=== PATIENT | female | born 1940 | race Caucasian/White ===

== ENCOUNTER 2022-04-01 08:52 | Inpatient (IN) | payer OTHER, MEDICAID ==
[2022-04-01] VITALS (8 sets, daily range): BP systolic 76–134
[~2022-04-01] VITALS: Ht 152.4 cm; Wt 76.7 kg
[2022-04-01] MEDS ORDERED: cefTRIAXone 1 GM IVPB PREMIX 50 ML IV ONE (09:00)
[2022-04-01] MEDS ORDERED: NS 1000 ML IV.SOLN IV ONE (09:00)
[2022-04-01] MEDS ORDERED: ACET325T PO (09:20)
[2022-04-01] MEDS ORDERED: MULT-1193 PO (09:20)
[2022-04-01] MEDS ORDERED: VITD2000 PO (09:20)
[2022-04-01] MEDS ORDERED: DOCU-144 PO (09:20)
[2022-04-01] MEDS ORDERED: TAMS-11 PO (09:20)
[2022-04-01] MEDS ORDERED: SUCR1TAB2 PO (09:20)
[2022-04-01] MEDS ORDERED: CARB15DR OP (09:20)
[2022-04-01] MEDS ORDERED: OMEG-158 PO (09:20)
[2022-04-01] MEDS ORDERED: CARV6.2554 PO (09:20)
[2022-04-01] MEDS ORDERED: GLUC1KIT IJ (09:20)
[2022-04-01] MEDS ORDERED: METF-379 PO (09:20)
[2022-04-01] MEDS ORDERED: AMIN30LI2 PO (09:20)
[2022-04-01] MEDS ORDERED: INSU100V11 SQ ×2 (09:20)
[2022-04-01] MEDS ORDERED: SSNOVOLOG SUBCUT (09:20)
[2022-04-01] MEDS ORDERED: CRAN450T9 PO (09:20)
[2022-04-01] MEDS ORDERED: RIVA10TA PO (09:20)
[2022-04-01] MEDS ORDERED: SYN50 PO (09:20)
[2022-04-01 09:44] LABS: BASOPHILS # (AUTO) 0.1 K/uL (0.0-0.2); BASOPHILS % (AUTO) 0.4 % (0.0-2.0); EOSINOPHILS % (AUTO) 0.2 % (0.0-4.0); HEMATOCRIT 42.2 % (36-48); HEMOGLOBIN 14.4 g/dL (12.0-16.0); LYMPHOCYTES # (AUTO) 3.2 K/uL (1.0-5.5); LYMPHOCYTES % (AUTO) 18.1 % (20.5-51.5); MEAN CORPUSCULAR HEMOGLOBIN 32 pg (27-31); MEAN CORPUSCULAR HGB CONC 34 % (32-36); MEAN CORPUSCULAR VOLUME 93 fL (79.0-98.0); MONOCYTES # (AUTO) 1.9 K/uL (0.0-1.0); MONOCYTES % (AUTO) 10.5 % (1.7-9.3); NEUTROPHILS # (AUTO) 12.5 K/uL (1.8-7.7); NEUTROPHILS % (AUTO) 70.8 % (40.0-70.0); PLATELET COUNT (AUTO) 264 K/uL (130-430); RED BLOOD CELL COUNT(AUTO) 4.54 MIL/uL (4.2-6.2); RED CELL DISTRIBUTION WIDTH 15.2 % (9.0-15.0); WHITE BLOOD COUNT (AUTO) 17.7 K/uL (4.8-10.8)
[2022-04-01 10:04] LABS: ANION GAP 10 (5-15); CALCIUM 8.9 mg/dL (8.4-11.0); CHLORIDE 105 mmol/L (98-107); CREATININE 0.66 mg/dL (0.55-1.30); GLUCOSE 143 mg/dL (70-99); UREA NITROGEN, BLOOD 21 mg/dL (8-21)
[2022-04-01 10:13] LABS: ALBUMIN 2.5 g/dL (3.4-4.8); ASPARTATE AMINOTRANSFERASE 15 U/L (10-37); TOTAL BILIRUBIN 0.7 mg/dL (0.0-1.0)
[2022-04-01 10:29] LABS: ALANINE AMINOTRANSFERASE 9 U/L (12-78)
[2022-04-01 12:11] LABS: BILIRUBIN,URINE NEGATIVE (NEGATIVE); BLOOD, URINE 3+ (NEGATIVE); CLARITY/URINE CLOUDY (CLEAR); COLOR,URINE YELLOW (YELLOW); GLUCOSE,URINE NEGATIVE (NEGATIVE); KETONES,URINE TRACE (NEGATIVE); LEUKOCYTE ESTERASE ,URINE 3+ (NEGATIVE); NITRITE, URINE NEGATIVE (NEGATIVE); PROTEIN URINE 2+ (NEGATIVE); UROBILINOGEN,URINE 0.2 (0.2-1.0)
[2022-04-01 12:30] LABS: BACTERIA,URINE FEW /HPF (None Seen); RBC,URINE 20-50 /HPF (0-3); WBC,URINE >100 /HPF (0-3)
[2022-04-01] MEDS ORDERED: ACETAMINOPHEN 500 MG TABLET PO ONE (12:45)
[2022-04-01] MEDS ORDERED: NACL 0.9% 1,000 ML IV ONE (13:30)
[2022-04-01] MEDS ORDERED: cefTRIAXone 1 GM in D5W 50 ML IV SCH (15:45)
[2022-04-01] MEDS ORDERED: NACL 0.9% 1,000 ML IV SCH (15:45)
[2022-04-01] MEDS ORDERED: AZITHROMYCIN 500 MG in NS 250 ML IV SCH (15:45)
[2022-04-01] MEDS ORDERED: dilTIAZem HCL IVP 5 MG/ML VIAL IVP ONE ×2 (15:50→16:00)
[2022-04-01] MEDS ORDERED: dilTIAZem HCL IVP 5 MG/ML VIAL ONE (15:56)
[2022-04-01] MEDS ORDERED: DILTIAZEM HCL 60 MG TABLET ONE (15:57)
[2022-04-01] MEDS ORDERED: DILTIAZEM HCL 60 MG TABLET PO ONE (16:00)
[2022-04-01] MEDS ORDERED: METOPROLOL TARTRATE 5 MG/5 ML VIAL IVP ONE (16:45)
[2022-04-01] MEDS ORDERED: *HEPARIN PER PHARMACY XX ONE (17:00)
[2022-04-01] MEDS ORDERED: HEPARIN SODIUM,PORCINE 2000 UNITS/0.4 ML BOLUS IVP PRN (17:15)
[2022-04-01] MEDS ORDERED: HEPARIN SODIUM,PORCINE 3000 UNITS/0.6 ML BOLUS IVP PRN (17:15)
[2022-04-01] MEDS ORDERED: HEPARIN SODIUM,PORCINE 5,000 UNITS/ML VIAL IVP ONE (17:30)
[2022-04-01] MEDS: AMIODARONE HCL 450 MG in D5W 241 ML IV SCH (18:08)
[2022-04-01] MEDS: LevALBUTEROL HCL 1.25 MG/0.5 ML *CONC.* VIAL.NEB (XOPENEX CONC.) INH SCH (19:35)
[2022-04-01] MEDS: AZITHROMYCIN 500 MG in NS 250 ML IV SCH (20:55)
[2022-04-01] MEDS: DOCUSATE SODIUM 100 MG CAPSULE PO SCH (21:00)
[2022-04-01] MEDS: CARVEDILOL 6.25 MG TABLET (COREG) PO SCH (21:00)
[2022-04-01] MEDS: OMEGA-3/DHA/EPA/FISH OIL 1 GM CAPSULE PO SCH (21:00)
[2022-04-01] MEDS: PEG 400/HYPROMELLOSE/GLYCERIN 15 ML DROPS OP SCH (21:00)
[2022-04-01] MEDS: HEPARIN 25,000 UNITS in 250 ML PREMIX IV PRN (21:06)
[2022-04-01] MEDS: SUCRALFATE 1 GM TABLET PO SCH ×2 (21:17→21:18)
[2022-04-01] MEDS: INSULIN GLARGINE 100 UNITS/ML, 10 ML VIAL SUBCUT SCH (22:05)
[2022-04-01] MEDS ORDERED: NOREPINEPHRINE 4 MG/4 ML VIAL IV ONE (22:13)
[2022-04-02] VITALS (24 sets, daily range): BP systolic 85–165
[2022-04-02] MEDS ORDERED: AMIODARONE HCL 450 MG/9 ML VIAL IV ONE (00:30)
[2022-04-02] MEDS: NOREPINEPHRINE BITARTRATE 4 MG in D5W 246 ML IV PRN ×2 (00:42→06:31)
[2022-04-02] MEDS: AMIODARONE HCL 450 MG in D5W 241 ML IV SCH (00:53)
[2022-04-02] MEDS: LevALBUTEROL HCL 1.25 MG/0.5 ML *CONC.* VIAL.NEB (XOPENEX CONC.) INH SCH ×4 (00:55→19:59)
[2022-04-02 03:29] LABS: BASOPHILS # (AUTO) 0.1 K/uL (0.0-0.2); BASOPHILS % (AUTO) 0.8 % (0.0-2.0); EOSINOPHILS % (AUTO) 0.1 % (0.0-4.0); HEMATOCRIT 39.3 % (36-48); HEMOGLOBIN 12.8 g/dL (12.0-16.0); LYMPHOCYTES # (AUTO) 3.9 K/uL (1.0-5.5); LYMPHOCYTES % (AUTO) 21.7 % (20.5-51.5); MEAN CORPUSCULAR HEMOGLOBIN 30 pg (27-31); MEAN CORPUSCULAR HGB CONC 33 % (32-36); MEAN CORPUSCULAR VOLUME 91 fL (79.0-98.0); MONOCYTES # (AUTO) 1.9 K/uL (0.0-1.0); MONOCYTES % (AUTO) 10.5 % (1.7-9.3); NEUTROPHILS # (AUTO) 12.1 K/uL (1.8-7.7); NEUTROPHILS % (AUTO) 66.9 % (40.0-70.0); PLATELET COUNT (AUTO) 287 K/uL (130-430); RED CELL DISTRIBUTION WIDTH 15.3 % (9.0-15.0)
[2022-04-02 04:03] LABS: ANION GAP 14 (5-15); CALCIUM 7.8 mg/dL (8.4-11.0); CHLORIDE 106 mmol/L (98-107); CREATININE 0.74 mg/dL (0.55-1.30); GLUCOSE 302 mg/dL (70-99); UREA NITROGEN, BLOOD 30 mg/dL (8-21)
[2022-04-02 04:23] LABS: INR 1.1 (0.8-1.2); PROTHROMBIN TIME 11.5 SECS (9.5-12.5)
[2022-04-02] MEDS: HEPARIN 25,000 UNITS in 250 ML PREMIX IV PRN ×2 (05:13→13:54)
[2022-04-02] MEDS ORDERED: NOREPINEPHRINE 4 MG/4 ML VIAL IV ONE (06:09)
[2022-04-02] MEDS: INSULIN LISPRO SLIDING SCALE 100 UNITS/ML, 3 ML VIAL (humaLOG) SUBCUT PRN (06:28)
[2022-04-02] MEDS: LEVOTHYROXINE SODIUM 0.05 MG TABLET PO SCH (06:34)
[2022-04-02] MEDS: CARVEDILOL 6.25 MG TABLET (COREG) PO SCH ×2 (09:00→21:19)
[2022-04-02] MEDS: DOCUSATE SODIUM 100 MG CAPSULE PO SCH ×2 (09:00→21:19)
[2022-04-02] MEDS: ACETAMINOPHEN 325 MG TABLET PO SCH (09:00)
[2022-04-02] MEDS: CHOLECALCIFEROL (VITAMIN D3) 2,000 UNIT TABLET PO SCH (09:00)
[2022-04-02] MEDS ORDERED: RIVAROXABAN 10 MG TABLET PO SCH (09:00)
[2022-04-02] MEDS ORDERED: NON-FORMULARY MEDICATION (Amino Acids/Protein Hydrolys (Pro-Stat Liquid) 30 ML) PO SCH (09:00)
[2022-04-02] MEDS: SUCRALFATE 1 GM TABLET PO SCH ×4 (09:00→21:18)
[2022-04-02] MEDS: PEG 400/HYPROMELLOSE/GLYCERIN 15 ML DROPS OP SCH ×2 (09:00→21:21)
[2022-04-02] MEDS: MULTIVITS,CA,MINERALS/IRON/FA 1 TABLET PO SCH (09:00)
[2022-04-02] MEDS ORDERED: cefTRIAXone 1 GM in D5W 50 ML IV SCH (10:00)
[2022-04-02 12:02] LABS: ERYTHROCYTE SEDIMENTATION RATE 79 MM/HR (0-20)
[2022-04-02] MEDS: SODIUM BICARBONATE 8.4% JECT 50 MEQ in 0.45% NACL 1,000 ML IV SCH (13:39)
[2022-04-02] MEDS ORDERED: DIGOXIN 0.5 MG/2 ML AMP IVP ONE (14:30)
[2022-04-02] MEDS: OMEGA-3/DHA/EPA/FISH OIL 1 GM CAPSULE PO SCH (21:19)
[2022-04-02] MEDS: CEFEPIME 2 GM in D5W 100 ML IV SCH (21:20)
[2022-04-02] MEDS: metroNIDAZOLE 500 mg/NS 100 ML IV SCH (21:20)
[2022-04-02 21:23] LABS: PROTHROMBIN TIME 10.5 SECS (9.5-12.5)
[2022-04-02] MEDS: INSULIN GLARGINE 100 UNITS/ML, 10 ML VIAL SUBCUT SCH (21:29)
[2022-04-03] VITALS (24 sets, daily range): BP systolic 98–146
[2022-04-03] MEDS: LevALBUTEROL HCL 1.25 MG/0.5 ML *CONC.* VIAL.NEB (XOPENEX CONC.) INH SCH ×4 (00:12→19:40)
[2022-04-03] MEDS: SODIUM BICARBONATE 8.4% JECT 50 MEQ in 0.45% NACL 1,000 ML IV SCH ×2 (03:29→19:06)
[2022-04-03] MEDS: LEVOTHYROXINE SODIUM 0.05 MG TABLET PO SCH (06:20)
[2022-04-03 06:35] LABS: BASOPHILS # (AUTO) 0.1 K/uL (0.0-0.2); BASOPHILS % (AUTO) 0.6 % (0.0-2.0); EOSINOPHILS # (AUTO) 0.1 K/uL (0.0-0.4); EOSINOPHILS % (AUTO) 1.4 % (0.0-4.0); HEMATOCRIT 35.9 % (36-48); HEMOGLOBIN 12.4 g/dL (12.0-16.0); LYMPHOCYTES # (AUTO) 2.5 K/uL (1.0-5.5); MEAN CORPUSCULAR HEMOGLOBIN 32 pg (27-31); MEAN CORPUSCULAR HGB CONC 35 % (32-36); MEAN CORPUSCULAR VOLUME 91 fL (79.0-98.0); MONOCYTES # (AUTO) 1.1 K/uL (0.0-1.0); MONOCYTES % (AUTO) 10.6 % (1.7-9.3); NEUTROPHILS # (AUTO) 6.2 K/uL (1.8-7.7); NEUTROPHILS % (AUTO) 62.4 % (40.0-70.0); PLATELET COUNT (AUTO) 241 K/uL (130-430); RED BLOOD CELL COUNT(AUTO) 3.93 MIL/uL (4.2-6.2); RED CELL DISTRIBUTION WIDTH 14.9 % (9.0-15.0)
[2022-04-03] MEDS: AZITHROMYCIN 500 MG in NS 250 ML IV SCH ×2 (07:58→19:06)
[2022-04-03] MEDS: MULTIVITS,CA,MINERALS/IRON/FA 1 TABLET PO SCH (08:47)
[2022-04-03] MEDS: ACETAMINOPHEN 325 MG TABLET PO SCH (08:47)
[2022-04-03] MEDS: CARVEDILOL 6.25 MG TABLET (COREG) PO SCH (08:48)
[2022-04-03] MEDS: CHOLECALCIFEROL (VITAMIN D3) 2,000 UNIT TABLET PO SCH (08:48)
[2022-04-03] MEDS: DOCUSATE SODIUM 100 MG CAPSULE PO SCH ×2 (08:49→20:21)
[2022-04-03] MEDS: SUCRALFATE 1 GM TABLET PO SCH ×4 (08:49→20:21)
[2022-04-03] MEDS: CEFEPIME 2 GM in D5W 100 ML IV SCH ×2 (08:50→20:21)
[2022-04-03] MEDS: PEG 400/HYPROMELLOSE/GLYCERIN 15 ML DROPS OP SCH ×2 (08:50→21:13)
[2022-04-03 08:53] LABS: ANION GAP 8 (5-15); CALCIUM 7.7 mg/dL (8.4-11.0); CHLORIDE 106 mmol/L (98-107); GLUCOSE 128 mg/dL (70-99); UREA NITROGEN, BLOOD 21 mg/dL (8-21)
[2022-04-03] MEDS: metroNIDAZOLE 500 mg/NS 100 ML IV SCH ×2 (09:50→21:13)
[2022-04-03] MEDS ORDERED: FUROSEMIDE 20 MG/2 ML VIAL IVP ONE (12:00)
[2022-04-03] MEDS: ACETYLCYSTEINE 20% 4 ML VIAL (RT) INH SCH ×2 (12:09→19:41)
[2022-04-03] MEDS: HEPARIN 25,000 UNITS in 250 ML PREMIX IV PRN (12:31)
[2022-04-03] MEDS ORDERED: BALSAM PERU/CASTOR OIL 56.7 GM OINT...G. TP ONE (15:45)
[2022-04-03] MEDS: OMEGA-3/DHA/EPA/FISH OIL 1 GM CAPSULE PO SCH (20:21)
[2022-04-03] MEDS: INSULIN GLARGINE 100 UNITS/ML, 10 ML VIAL SUBCUT SCH (21:18)
[2022-04-04] VITALS (24 sets, daily range): BP systolic 85–139
[2022-04-04] MEDS: ACETYLCYSTEINE 20% 4 ML VIAL (RT) INH SCH ×4 (01:10→20:53)
[2022-04-04] MEDS: LevALBUTEROL HCL 1.25 MG/0.5 ML *CONC.* VIAL.NEB (XOPENEX CONC.) INH SCH ×4 (01:10→20:40)
[2022-04-04] MEDS: LEVOTHYROXINE SODIUM 0.05 MG TABLET PO SCH (06:53)
[2022-04-04 06:57] LABS: ANION GAP 4 (5-15); CHLORIDE 103 mmol/L (98-107); CREATININE 0.45 mg/dL (0.55-1.30); GLUCOSE 112 mg/dL (70-99); UREA NITROGEN, BLOOD 18 mg/dL (8-21)
[2022-04-04 07:03] LABS: CALCIUM 6.9 mg/dL (8.4-11.0)
[2022-04-04 09:29] LABS: BASOPHILS % (AUTO) 0.3 % (0.0-2.0); EOSINOPHILS # (AUTO) 0.4 K/uL (0.0-0.4); EOSINOPHILS % (AUTO) 3.9 % (0.0-4.0); HEMATOCRIT 35.6 % (36-48); HEMOGLOBIN 12.3 g/dL (12.0-16.0); LYMPHOCYTES # (AUTO) 3.4 K/uL (1.0-5.5); MEAN CORPUSCULAR HEMOGLOBIN 31 pg (27-31); MEAN CORPUSCULAR HGB CONC 35 % (32-36); MEAN CORPUSCULAR VOLUME 89 fL (79.0-98.0); MONOCYTES # (AUTO) 0.7 K/uL (0.0-1.0); MONOCYTES % (AUTO) 7.7 % (1.7-9.3); NEUTROPHILS # (AUTO) 5.2 K/uL (1.8-7.7); NEUTROPHILS % (AUTO) 53.1 % (40.0-70.0); PLATELET COUNT (AUTO) 247 K/uL (130-430); RED BLOOD CELL COUNT(AUTO) 4.01 MIL/uL (4.2-6.2); RED CELL DISTRIBUTION WIDTH 14.9 % (9.0-15.0); WHITE BLOOD COUNT (AUTO) 9.7 K/uL (4.8-10.8)
[2022-04-04] MEDS: CEFEPIME 2 GM in D5W 100 ML IV SCH ×2 (12:03→21:26)
[2022-04-04] MEDS: metroNIDAZOLE 500 mg/NS 100 ML IV SCH ×2 (12:03→20:58)
[2022-04-04] MEDS: MULTIVITS,CA,MINERALS/IRON/FA 1 TABLET PO SCH (12:04)
[2022-04-04] MEDS: ACETAMINOPHEN 325 MG TABLET PO SCH (12:05)
[2022-04-04] MEDS: DOCUSATE SODIUM 100 MG CAPSULE PO SCH ×2 (12:06→21:31)
[2022-04-04] MEDS: SUCRALFATE 1 GM TABLET PO SCH ×4 (12:06→21:28)
[2022-04-04] MEDS: PEG 400/HYPROMELLOSE/GLYCERIN 15 ML DROPS OP SCH ×2 (12:07→21:27)
[2022-04-04] MEDS: CHOLECALCIFEROL (VITAMIN D3) 2,000 UNIT TABLET PO SCH (12:09)
[2022-04-04] MEDS: BALSAM PERU/CASTOR OIL 56.7 GM OINT...G. TP SCH (12:10)
[2022-04-04] MEDS: SODIUM BICARBONATE 8.4% JECT 50 MEQ in 0.45% NACL 1,000 ML IV SCH (12:12)
[2022-04-04] MEDS ORDERED: DIGOXIN 0.5 MG/2 ML AMP IVP ONE (13:45)
[2022-04-04] MEDS ORDERED: POTASSIUM CHLORIDE 20 MEQ TAB.PRT.SR PO ONE (13:45)
[2022-04-04] MEDS: NACL 0.9% 1,000 ML IV SCH (17:13)
[2022-04-04] MEDS: AZITHROMYCIN 500 MG in NS 250 ML IV SCH (17:14)
[2022-04-04] MEDS: OMEGA-3/DHA/EPA/FISH OIL 1 GM CAPSULE PO SCH (21:32)
[2022-04-04] MEDS: INSULIN GLARGINE 100 UNITS/ML, 10 ML VIAL SUBCUT SCH (22:00)
[2022-04-04] MEDS: INSULIN LISPRO SLIDING SCALE 100 UNITS/ML, 3 ML VIAL (humaLOG) SUBCUT PRN (22:15)
[2022-04-04] MEDS ORDERED: NOREPINEPHRINE 4 MG/4 ML VIAL IV ONE (22:26)
[2022-04-04] MEDS: NOREPINEPHRINE BITARTRATE 4 MG in D5W 246 ML IV PRN (22:31)
[2022-04-05] VITALS (19 sets, daily range): BP systolic 98–168
[2022-04-05] MEDS: LevALBUTEROL HCL 1.25 MG/0.5 ML *CONC.* VIAL.NEB (XOPENEX CONC.) INH SCH ×4 (01:38→19:24)
[2022-04-05] MEDS: ACETYLCYSTEINE 20% 4 ML VIAL (RT) INH SCH ×4 (01:50→19:25)
[2022-04-05] MEDS: LEVOTHYROXINE SODIUM 0.05 MG TABLET PO SCH (06:21)
[2022-04-05 07:25] LABS: ANION GAP 9 (5-15); CALCIUM 8.3 mg/dL (8.4-11.0); CHLORIDE 107 mmol/L (98-107); CREATININE 0.68 mg/dL (0.55-1.30); GLUCOSE 206 mg/dL (70-99); UREA NITROGEN, BLOOD 19 mg/dL (8-21)
[2022-04-05] MEDS: metroNIDAZOLE 500 mg/NS 100 ML IV SCH ×2 (08:31→20:51)
[2022-04-05] MEDS: CEFEPIME 2 GM in D5W 100 ML IV SCH ×2 (08:31→22:21)
[2022-04-05] MEDS: BALSAM PERU/CASTOR OIL 56.7 GM OINT...G. TP SCH (08:32)
[2022-04-05] MEDS: MULTIVITS,CA,MINERALS/IRON/FA 1 TABLET PO SCH (08:32)
[2022-04-05] MEDS: SUCRALFATE 1 GM TABLET PO SCH ×4 (08:33→20:54)
[2022-04-05] MEDS: ACETAMINOPHEN 325 MG TABLET PO SCH (08:33)
[2022-04-05] MEDS: CHOLECALCIFEROL (VITAMIN D3) 2,000 UNIT TABLET PO SCH (08:33)
[2022-04-05] MEDS: DOCUSATE SODIUM 100 MG CAPSULE PO SCH ×2 (08:33→20:54)
[2022-04-05] MEDS: PEG 400/HYPROMELLOSE/GLYCERIN 15 ML DROPS OP SCH ×2 (08:34→21:55)
[2022-04-05 09:47] LABS: HEMATOCRIT 36.9 % (36-48); HEMOGLOBIN 12.4 g/dL (12.0-16.0); MEAN CORPUSCULAR HEMOGLOBIN 30 pg (27-31); MEAN CORPUSCULAR HGB CONC 34 % (32-36); MEAN CORPUSCULAR VOLUME 90 fL (79.0-98.0); PLATELET COUNT (AUTO) 257 K/uL (130-430); RED CELL DISTRIBUTION WIDTH 15.5 % (9.0-15.0); WHITE BLOOD COUNT (AUTO) 10.9 K/uL (4.8-10.8)
[2022-04-05 09:53] LABS: EOSINOPHILS % (AUTO) 3.2 % (0.0-4.0); LYMPHOCYTES % (AUTO) 31.9 % (20.5-51.5); MONOCYTES % (AUTO) 10.3 % (1.7-9.3); NEUTROPHILS % (AUTO) 53.7 % (40.0-70.0)
[2022-04-05 09:54] LABS: BASOPHILS # (AUTO) 0.1 K/uL (0.0-0.2); BASOPHILS % (AUTO) 0.9 % (0.0-2.0); EOSINOPHILS # (AUTO) 0.3 K/uL (0.0-0.4); LYMPHOCYTES # (AUTO) 2.7 K/uL (1.0-5.5); MONOCYTES # (AUTO) 0.9 K/uL (0.0-1.0); NEUTROPHILS # (AUTO) 4.6 K/uL (1.8-7.7)
[2022-04-05] MEDS: HEPARIN 25,000 UNITS in 250 ML PREMIX IV PRN (10:34)
[2022-04-05] MEDS: NACL 0.9% 1,000 ML IV SCH ×2 (12:06→20:51)
[2022-04-05] MEDS: INSULIN LISPRO SLIDING SCALE 100 UNITS/ML, 3 ML VIAL (humaLOG) SUBCUT PRN ×2 (12:07→17:55)
[2022-04-05] MEDS ORDERED: DIGOXIN 0.5 MG/2 ML AMP IVP ONE (14:00)
[2022-04-05] MEDS: OMEGA-3/DHA/EPA/FISH OIL 1 GM CAPSULE PO SCH (20:54)
[2022-04-05] MEDS: APIXABAN 2.5 MG TABLET PO SCH (20:56)
[2022-04-05] MEDS: INSULIN GLARGINE 100 UNITS/ML, 10 ML VIAL SUBCUT SCH (21:26)
[2022-04-06] MEDS: ACETYLCYSTEINE 20% 4 ML VIAL (RT) INH SCH ×4 (01:00→19:48)
[2022-04-06] MEDS: LevALBUTEROL HCL 1.25 MG/0.5 ML *CONC.* VIAL.NEB (XOPENEX CONC.) INH SCH ×4 (03:20→19:48)
[2022-04-06 05:11] VITALS: BP_SYST 105
[2022-04-06] MEDS: INSULIN LISPRO SLIDING SCALE 100 UNITS/ML, 3 ML VIAL (humaLOG) SUBCUT PRN ×4 (07:53→22:27)
[2022-04-06] MEDS: LEVOTHYROXINE SODIUM 0.05 MG TABLET PO SCH (07:58)
[2022-04-06] MEDS: metroNIDAZOLE 500 mg/NS 100 ML IV SCH ×2 (09:02→22:36)
[2022-04-06] MEDS: ACETAMINOPHEN 325 MG TABLET PO SCH ×2 (09:04→10:04)
[2022-04-06] MEDS: CEFEPIME 2 GM in D5W 100 ML IV SCH ×2 (09:04→21:20)
[2022-04-06] MEDS: CHOLECALCIFEROL (VITAMIN D3) 2,000 UNIT TABLET PO SCH (09:04)
[2022-04-06] MEDS: MULTIVITS,CA,MINERALS/IRON/FA 1 TABLET PO SCH (09:05)
[2022-04-06] MEDS: SUCRALFATE 1 GM TABLET PO SCH ×4 (09:05→21:16)
[2022-04-06] MEDS: DOCUSATE SODIUM 100 MG CAPSULE PO SCH ×2 (09:05→21:16)
[2022-04-06] MEDS: PEG 400/HYPROMELLOSE/GLYCERIN 15 ML DROPS OP SCH ×2 (09:07→21:19)
[2022-04-06] MEDS: BALSAM PERU/CASTOR OIL 56.7 GM OINT...G. TP SCH (09:08)
[2022-04-06] MEDS: APIXABAN 2.5 MG TABLET PO SCH ×2 (09:09→21:17)
[2022-04-06 11:32] VITALS: BP_SYST 103
[2022-04-06 15:29] VITALS: BP_SYST 102
[2022-04-06] MEDS: OMEGA-3/DHA/EPA/FISH OIL 1 GM CAPSULE PO SCH (21:15)
[2022-04-06] MEDS: INSULIN GLARGINE 100 UNITS/ML, 10 ML VIAL SUBCUT SCH (22:28)
[2022-04-06 23:39] VITALS: BP_SYST 144
[2022-04-07 00:04] VITALS: BP_SYST 144
[2022-04-07] MEDS: ACETYLCYSTEINE 20% 4 ML VIAL (RT) INH SCH ×5 (01:38→23:21)
[2022-04-07] MEDS: LevALBUTEROL HCL 1.25 MG/0.5 ML *CONC.* VIAL.NEB (XOPENEX CONC.) INH SCH ×2 (01:38→07:06)
[2022-04-07] MEDS: NACL 0.9% 1,000 ML IV SCH (04:45)
[2022-04-07] MEDS: LEVOTHYROXINE SODIUM 0.05 MG TABLET PO SCH (07:16)
[2022-04-07] MEDS: INSULIN LISPRO SLIDING SCALE 100 UNITS/ML, 3 ML VIAL (humaLOG) SUBCUT PRN ×4 (07:18→20:53)
[2022-04-07 08:29] LABS: ANION GAP 7 (5-15); CALCIUM 8.8 mg/dL (8.4-11.0); CHLORIDE 108 mmol/L (98-107); GLUCOSE 326 mg/dL (70-99); UREA NITROGEN, BLOOD 27 mg/dL (8-21)
[2022-04-07] MEDS: metroNIDAZOLE 500 mg/NS 100 ML IV SCH ×2 (09:29→21:00)
[2022-04-07] MEDS: MULTIVITS,CA,MINERALS/IRON/FA 1 TABLET PO SCH (09:30)
[2022-04-07] MEDS: CHOLECALCIFEROL (VITAMIN D3) 2,000 UNIT TABLET PO SCH (09:30)
[2022-04-07] MEDS: SUCRALFATE 1 GM TABLET PO SCH ×4 (09:30→21:47)
[2022-04-07] MEDS: DOCUSATE SODIUM 100 MG CAPSULE PO SCH ×2 (09:30→21:47)
[2022-04-07] MEDS: CEFEPIME 2 GM in D5W 100 ML IV SCH ×2 (09:34→21:46)
[2022-04-07] MEDS: APIXABAN 2.5 MG TABLET PO SCH ×2 (09:35→20:54)
[2022-04-07] MEDS: PEG 400/HYPROMELLOSE/GLYCERIN 15 ML DROPS OP SCH ×2 (09:37→21:48)
[2022-04-07] MEDS: BALSAM PERU/CASTOR OIL 56.7 GM OINT...G. TP SCH (09:37)
[2022-04-07 10:24] LABS: HEMATOCRIT 38.7 % (36-48); HEMOGLOBIN 13.2 g/dL (12.0-16.0); MEAN CORPUSCULAR HEMOGLOBIN 32 pg (27-31); MEAN CORPUSCULAR HGB CONC 34 % (32-36); MEAN CORPUSCULAR VOLUME 93 fL (79.0-98.0); PLATELET COUNT (AUTO) 277 K/uL (130-430); RED BLOOD CELL COUNT(AUTO) 4.18 MIL/uL (4.2-6.2); RED CELL DISTRIBUTION WIDTH 15.6 % (9.0-15.0); WHITE BLOOD COUNT (AUTO) 14.4 K/uL (4.8-10.8)
[2022-04-07 11:34] VITALS: BP_SYST 138
[2022-04-07 11:51] LABS: BASOPHILS % (MANUAL) 0 % (0-2); EOSINOPHILS % (MANUAL) 3 % (0-7); LYMPHOCYTES % (MANUAL) 15 % (20-46); MONOCYTES % (MANUAL) 11 % (0-11)
[2022-04-07] MEDS: IPRATROPIUM/ALBUTEROL SULFATE 3 ML AMPUL.NEB (DUONEB) INH SCH ×3 (15:25→23:21)
[2022-04-07 16:57] VITALS: BP_SYST 130
[2022-04-07] MEDS ORDERED: DIGOXIN 0.5 MG/2 ML AMP IVP ONE (18:00)
[2022-04-07] MEDS ORDERED: FUROSEMIDE 20 MG/2 ML VIAL IVP ONE (18:15)
[2022-04-07 18:41] VITALS: BP_SYST 148
[2022-04-07] MEDS: INSULIN GLARGINE 100 UNITS/ML, 10 ML VIAL SUBCUT SCH (20:52)
[2022-04-07] MEDS: OMEGA-3/DHA/EPA/FISH OIL 1 GM CAPSULE PO SCH (21:46)
[2022-04-07] MEDS: CARVEDILOL 3.125 MG TABLET (COREG) PO SCH (21:47)
[2022-04-08 00:11] VITALS: BP_SYST 137
[2022-04-08] MEDS: ACETYLCYSTEINE 20% 4 ML VIAL (RT) INH SCH ×6 (03:40→23:54)
[2022-04-08] MEDS: IPRATROPIUM/ALBUTEROL SULFATE 3 ML AMPUL.NEB (DUONEB) INH SCH ×6 (03:40→23:54)
[2022-04-08 04:53] VITALS: BP_SYST 158
[2022-04-08] MEDS: LEVOTHYROXINE SODIUM 0.05 MG TABLET PO SCH (06:41)
[2022-04-08] MEDS: INSULIN LISPRO SLIDING SCALE 100 UNITS/ML, 3 ML VIAL (humaLOG) SUBCUT PRN ×3 (06:53→21:10)
[2022-04-08 07:41] LABS: BASOPHILS # (AUTO) 0.1 K/uL (0.0-0.2); BASOPHILS % (AUTO) 0.5 % (0.0-2.0); EOSINOPHILS # (AUTO) 0.5 K/uL (0.0-0.4); EOSINOPHILS % (AUTO) 4.2 % (0.0-4.0); HEMOGLOBIN 12.3 g/dL (12.0-16.0); LYMPHOCYTES % (AUTO) 25.8 % (20.5-51.5); MEAN CORPUSCULAR HEMOGLOBIN 32 pg (27-31); MEAN CORPUSCULAR HGB CONC 34 % (32-36); MEAN CORPUSCULAR VOLUME 94 fL (79.0-98.0); MONOCYTES # (AUTO) 1.3 K/uL (0.0-1.0); MONOCYTES % (AUTO) 11.4 % (1.7-9.3); NEUTROPHILS # (AUTO) 6.7 K/uL (1.8-7.7); PLATELET COUNT (AUTO) 259 K/uL (130-430); RED BLOOD CELL COUNT(AUTO) 3.82 MIL/uL (4.2-6.2); RED CELL DISTRIBUTION WIDTH 15.7 % (9.0-15.0); WHITE BLOOD COUNT (AUTO) 11.6 K/uL (4.8-10.8)
[2022-04-08 08:40] LABS: ANION GAP 5 (5-15); CALCIUM 8.7 mg/dL (8.4-11.0); CHLORIDE 107 mmol/L (98-107); CREATININE 0.96 mg/dL (0.55-1.30); GLUCOSE 303 mg/dL (70-99); UREA NITROGEN, BLOOD 29 mg/dL (8-21)
[2022-04-08 08:50] LABS: NEUTROPHILS % (AUTO) 58.1 % (40.0-70.0)
[2022-04-08 11:23] VITALS: BP_SYST 110
[2022-04-08] MEDS: SUCRALFATE 1 GM TABLET PO SCH ×4 (13:00→21:40)
[2022-04-08] MEDS: CHOLECALCIFEROL (VITAMIN D3) 2,000 UNIT TABLET PO SCH (13:34)
[2022-04-08] MEDS: DOCUSATE SODIUM 100 MG CAPSULE PO SCH ×2 (13:35→21:40)
[2022-04-08] MEDS: ACETAMINOPHEN 325 MG TABLET PO SCH (13:35)
[2022-04-08] MEDS: MULTIVITS,CA,MINERALS/IRON/FA 1 TABLET PO SCH (13:35)
[2022-04-08] MEDS: CARVEDILOL 3.125 MG TABLET (COREG) PO SCH ×2 (13:36→21:41)
[2022-04-08] MEDS: CEFEPIME 2 GM in D5W 100 ML IV SCH ×2 (13:39→21:00)
[2022-04-08] MEDS: APIXABAN 2.5 MG TABLET PO SCH ×2 (13:41→21:41)
[2022-04-08] MEDS: BALSAM PERU/CASTOR OIL 56.7 GM OINT...G. TP SCH (14:54)
[2022-04-08] MEDS: PEG 400/HYPROMELLOSE/GLYCERIN 15 ML DROPS OP SCH ×2 (14:55→21:40)
[2022-04-08] MEDS: metroNIDAZOLE 500 mg/NS 100 ML IV SCH ×2 (14:57→21:40)
[2022-04-08 15:18] VITALS: BP_SYST 121
[2022-04-08 20:00] VITALS: BP_SYST 122
[2022-04-08] MEDS: INSULIN GLARGINE 100 UNITS/ML, 10 ML VIAL SUBCUT SCH (21:08)
[2022-04-08] MEDS: OMEGA-3/DHA/EPA/FISH OIL 1 GM CAPSULE PO SCH (21:42)
[2022-04-09 00:40] VITALS: BP_SYST 126
[2022-04-09] MEDS: IPRATROPIUM/ALBUTEROL SULFATE 3 ML AMPUL.NEB (DUONEB) INH SCH ×6 (03:18→22:54)
[2022-04-09] MEDS: ACETYLCYSTEINE 20% 4 ML VIAL (RT) INH SCH ×6 (03:19→22:56)
[2022-04-09] MEDS: LEVOTHYROXINE SODIUM 0.05 MG TABLET PO SCH (07:03)
[2022-04-09] MEDS: INSULIN LISPRO SLIDING SCALE 100 UNITS/ML, 3 ML VIAL (humaLOG) SUBCUT PRN ×3 (07:07→21:31)
[2022-04-09] MEDS: metroNIDAZOLE 500 mg/NS 100 ML IV SCH ×2 (11:21→21:22)
[2022-04-09] MEDS: ACETAMINOPHEN 325 MG TABLET PO SCH (11:23)
[2022-04-09] MEDS: CHOLECALCIFEROL (VITAMIN D3) 2,000 UNIT TABLET PO SCH (11:23)
[2022-04-09] MEDS: MULTIVITS,CA,MINERALS/IRON/FA 1 TABLET PO SCH (11:24)
[2022-04-09] MEDS: CARVEDILOL 3.125 MG TABLET (COREG) PO SCH ×2 (11:24→21:11)
[2022-04-09] MEDS: APIXABAN 2.5 MG TABLET PO SCH ×2 (11:27→21:15)
[2022-04-09 11:31] VITALS: BP_SYST 131
[2022-04-09] MEDS: DOCUSATE SODIUM 100 MG/10 ML UDC NG SCH ×2 (11:31→21:21)
[2022-04-09] MEDS: PEG 400/HYPROMELLOSE/GLYCERIN 15 ML DROPS OP SCH ×2 (11:31→21:32)
[2022-04-09] MEDS: SUCRALFATE 1 GM TABLET PO SCH ×4 (11:31→21:07)
[2022-04-09] MEDS: BALSAM PERU/CASTOR OIL 56.7 GM OINT...G. TP SCH (11:32)
[2022-04-09] MEDS: FLUCONAZOLE 100 mg/ NS 50 ML IV SCH (14:55)
[2022-04-09] MEDS: cefTRIAXone 1 GM in D5W 50 ML IV SCH (14:55)
[2022-04-09 15:24] VITALS: BP_SYST 127
[2022-04-09 20:00] VITALS: BP_SYST 117
[2022-04-09] MEDS: OMEGA-3/DHA/EPA/FISH OIL 1 GM CAPSULE PO SCH (21:07)
[2022-04-09] MEDS: INSULIN GLARGINE 100 UNITS/ML, 10 ML VIAL SUBCUT SCH (21:30)
[2022-04-09] MEDS: guaiFENesin ER 600 MG TAB PO SCH (21:56)
[2022-04-10 00:13] VITALS: BP_SYST 148
[2022-04-10] MEDS: LEVOTHYROXINE SODIUM 0.05 MG TABLET PO SCH (06:32)
[2022-04-10 06:37] VITALS: BP_SYST 148
[2022-04-10] MEDS: INSULIN LISPRO SLIDING SCALE 100 UNITS/ML, 3 ML VIAL (humaLOG) SUBCUT PRN ×3 (06:56→17:42)
[2022-04-10] MEDS: ACETYLCYSTEINE 20% 4 ML VIAL (RT) INH SCH ×4 (07:36→19:51)
[2022-04-10] MEDS: IPRATROPIUM/ALBUTEROL SULFATE 3 ML AMPUL.NEB (DUONEB) INH SCH ×4 (07:36→19:51)
[2022-04-10 08:00] VITALS: BP_SYST 124
[2022-04-10] MEDS: DOCUSATE SODIUM 100 MG/10 ML UDC NG SCH ×2 (09:57→21:20)
[2022-04-10] MEDS: metroNIDAZOLE 500 mg/NS 100 ML IV SCH ×2 (09:57→21:20)
[2022-04-10] MEDS: CHOLECALCIFEROL (VITAMIN D3) 2,000 UNIT TABLET PO SCH (09:58)
[2022-04-10] MEDS: guaiFENesin ER 600 MG TAB PO SCH ×2 (09:58→21:21)
[2022-04-10] MEDS: MULTIVITS,CA,MINERALS/IRON/FA 1 TABLET PO SCH (09:58)
[2022-04-10] MEDS: CARVEDILOL 3.125 MG TABLET (COREG) PO SCH ×2 (09:58→21:37)
[2022-04-10] MEDS: PEG 400/HYPROMELLOSE/GLYCERIN 15 ML DROPS OP SCH ×2 (10:00→21:24)
[2022-04-10] MEDS: APIXABAN 2.5 MG TABLET PO SCH ×2 (10:01→21:23)
[2022-04-10] MEDS: ACETAMINOPHEN 325 MG TABLET PO SCH (10:03)
[2022-04-10] MEDS: BALSAM PERU/CASTOR OIL 56.7 GM OINT...G. TP SCH (10:04)
[2022-04-10] MEDS: SUCRALFATE 1 GM TABLET PO SCH ×4 (10:04→21:20)
[2022-04-10 11:17] LABS: ALANINE AMINOTRANSFERASE 8 U/L (12-78); ALBUMIN 1.8 g/dL (3.4-4.8); ANION GAP 3 (5-15); ASPARTATE AMINOTRANSFERASE 10 U/L (10-37); CALCIUM 8.5 mg/dL (8.4-11.0); CHLORIDE 107 mmol/L (98-107); CREATININE 0.93 mg/dL (0.55-1.30); DIGOXIN 0.7 ng/mL (0.80-2.00); GLUCOSE 265 mg/dL (70-99); TOTAL BILIRUBIN 0.3 mg/dL (0.0-1.0); UREA NITROGEN, BLOOD 28 mg/dL (8-21)
[2022-04-10 11:23] VITALS: BP_SYST 125
[2022-04-10] MEDS: cefTRIAXone 1 GM in D5W 50 ML IV SCH (12:09)
[2022-04-10] MEDS: FLUCONAZOLE 100 mg/ NS 50 ML IV SCH (12:10)
[2022-04-10 15:34] VITALS: BP_SYST 129
[2022-04-10 20:00] VITALS: BP_SYST 148
[2022-04-10] MEDS: OMEGA-3/DHA/EPA/FISH OIL 1 GM CAPSULE PO SCH (21:20)
[2022-04-10] MEDS: INSULIN GLARGINE 100 UNITS/ML, 10 ML VIAL SUBCUT SCH (21:31)
[2022-04-11 00:44] VITALS: BP_SYST 137
[2022-04-11] MEDS: IPRATROPIUM/ALBUTEROL SULFATE 3 ML AMPUL.NEB (DUONEB) INH SCH ×5 (02:22→15:11)
[2022-04-11] MEDS: ACETYLCYSTEINE 20% 4 ML VIAL (RT) INH SCH ×5 (02:22→15:11)
[2022-04-11] MEDS: LEVOTHYROXINE SODIUM 0.05 MG TABLET PO SCH (06:11)
[2022-04-11] MEDS: INSULIN LISPRO SLIDING SCALE 100 UNITS/ML, 3 ML VIAL (humaLOG) SUBCUT PRN ×3 (06:15→16:54)
[2022-04-11] MEDS: guaiFENesin ER 600 MG TAB PO SCH (09:22)
[2022-04-11] MEDS: metroNIDAZOLE 500 mg/NS 100 ML IV SCH (09:22)
[2022-04-11] MEDS: DOCUSATE SODIUM 100 MG/10 ML UDC NG SCH (09:22)
[2022-04-11] MEDS: SUCRALFATE 1 GM TABLET PO SCH ×3 (09:23→17:52)
[2022-04-11] MEDS: PEG 400/HYPROMELLOSE/GLYCERIN 15 ML DROPS OP SCH (09:24)
[2022-04-11] MEDS: APIXABAN 2.5 MG TABLET PO SCH (09:26)
[2022-04-11] MEDS: CARVEDILOL 3.125 MG TABLET (COREG) PO SCH (09:35)
[2022-04-11] MEDS: MULTIVITS,CA,MINERALS/IRON/FA 1 TABLET PO SCH (09:40)
[2022-04-11] MEDS: CHOLECALCIFEROL (VITAMIN D3) 2,000 UNIT TABLET PO SCH (09:41)
[2022-04-11] MEDS: ACETAMINOPHEN 325 MG TABLET PO SCH (09:41)
[2022-04-11] MEDS: BALSAM PERU/CASTOR OIL 56.7 GM OINT...G. TP SCH (09:42)
[2022-04-11 11:24] VITALS: BP_SYST 100
[2022-04-11] MEDS: cefTRIAXone 1 GM in D5W 50 ML IV SCH (11:43)
[2022-04-11] MEDS: FLUCONAZOLE 100 mg/ NS 50 ML IV SCH (11:44)
[2022-04-11 15:25] VITALS: BP_SYST 127
[2022-04-11 18:17] VITALS: BP_SYST 127
== END 2022-04-11 19:20 | DRG 871 ==
LOC: SED 08:52 → SIC 13:45 → STU 04-05 18:45
PROVIDERS: ADMIT Internal Medicine; ATTEND Internal Medicine
PROC: 05HY33Z Insertion of Infusion Device into Upper Vein, Percutaneous Approach (ICD-10-PCS; principal; 2022-04-02)
DX: A41.9 Sepsis, unspecified organism (principal); G93.41 Metabolic encephalopathy; J69.0 Pneumonitis due to inhalation of food and vomit; R65.21 Severe sepsis with septic shock; R57.0 Cardiogenic shock; J96.90 Respiratory failure, unspecified, unspecified whether with hypoxia or hypercapnia; N39.0 Urinary tract infection, site not specified; I69.354 Hemiplegia and hemiparesis following cerebral infarction affecting left non-dominant side; R00.1 Bradycardia, unspecified; Z66 Do not resuscitate; Z95.0 Presence of cardiac pacemaker; I48.91 Unspecified atrial fibrillation; E03.9 Hypothyroidism, unspecified; F03.90 Unspecified dementia, unspecified severity, without behavioral disturbance, psychotic disturbance, mood disturbance, and anxiety; I11.0 Hypertensive heart disease with heart failure; I50.9 Heart failure, unspecified; E11.9 Type 2 diabetes mellitus without complications; Z20.822 Contact with and (suspected) exposure to COVID-19; Z74.01 Bed confinement status; Z79.1 Long term (current) use of non-steroidal anti-inflammatories (NSAID); Z86.718 Personal history of other venous thrombosis and embolism; Z87.01 Personal history of pneumonia (recurrent); Z79.899 Other long term (current) drug therapy
CPT/HCPCS: 36415; 36600; 70450-TC; 70470-TC; 71045; 71260-TC; 76376; 76604; 80048; 80053; 80162; 81000; 81025; 82140; 82330; 82803-TC; 82962; 83605; 83735; 83880; 84443; 84484; 85007; 85025; 85027; 85610-TC; 85651-TC; 85730-TC; 86738; 87040; 87070-TC; 87081; 87086; 87205-TC; 87449; 92610-GN; 93005; 93306; 94640; 94760; 96365; 96372; 96375; 99283; 99285; G0378; J0456; J0692; J0696; J1160; J1450; J1644; J1815; J1940; J3490; J7050; J7060; J7608; J7612; Q9967